=== PATIENT | female | born 1980 | race Caucasian/White ===

== ENCOUNTER → 2017-09-07 | Outpatient (CLI) | payer OTHER ==
[~2017-09-07] MED LIST: ATHENOL325 MG PO; AUGMENTIN875 MG PO; CEFDINIR300 MG PO; ENDOCET 5-3251 EACH PO; FIORICET 50-301 EAC1 PO; FIORICET WI1 CAPSULE PO; IBUPROFEN800 MG PO; LAMISIL AT12 GM TP; NOHOMEMEDS; PHENERGAN-CODE120 ML PO; PREDNISONE20 MG PO; PREDNISONE50 MG PO; PRENATAL TABLE1 EAC3 PO; PROVENTIL,2.5 MG/0.5 IH; ROBITUSSIN AC,T10 ML PO; VICODIN 5-3001 EACH PO; ZITHROMAX Z-PA250 MG PO; ZOFRAN ODT4 MG PO
== END | disposition home or self-care (01) ==
LOC: AMB 12:00
PROC: 0HB0XZZ Excision of Scalp Skin, External Approach (ICD-10-PCS; principal; 2017-09-07)
DX: L72.11 Pilar cyst (principal)
CPT/HCPCS: 88304